=== PATIENT | female | born 1985 | race American Indian/Alaskan Native ===

== ENCOUNTER 2019-06-28 17:26 | Emergency (ER) | payer BC ==
[2019-06-28 17:32] VITALS: BP 136/87
--- NOTE | 2019-06-28 18:01 | Emergency Department Report ---
Chief Complaint: Upper Respiratory Infection Stated Complaint: FEVER/COUGH/WEAK/DIZZY Time Seen by Provider: 06/28/19 17:40 - HPI History of Present Illness: 33 y o healthy female presents to Ed cc of uri sx x 4 days pt states she has been taking theraflu with some relief but not resolve pt denoies f/c/n/v/abd pain - ROS Review of Systems: as noted in hpi - Exam Vital Signs: Vital Signs 06/28/19 17:28 Temperature 98.9 F Pulse Rate 83 Respiratory 20 Rate Blood Pressure 136/87 O2 Sat by Pulse 100 Oximetry Physical Exam: GEN:No acute distress LUNGS: CTAB, RRR, MSE screening note: Focused history and physical exam performed. Due to findings the following was ordered: ED Medical Decision Making - Medical Decision Making 33 y o female presents for URI No abnormal Vital signs Discussed to follow up with pcp ED Disposition for MSE Clinical Impression: URI (upper respiratory infection) Disposition: MED SCREENING EXAM-LEFT Is pt being admited?: No Does the pt Need Aspirin: No Condition: Stable Instructions: Upper Respiratory Infection (ED), Viral Syndrome (ED) Additional Instructions: follow up with pcp take otc meds for colds takee motrin as needed for pain and fever Referrals: PRIMARY CARE [Primary Care Provider] - 3-5 Days Forms: Work/School Release Form(ED) Time of Disposition: 18:08
== END 2019-06-28 18:28 | disposition left against medical advice (07) ==
LOC: ED 17:26
DX: J06.9 Acute upper respiratory infection, unspecified (principal)